=== PATIENT | male | born 1980 | race Caucasian/White ===

== ENCOUNTER 2016-09-21 09:58 | Day surgery (SDC) | payer OTHER ==
[~2016-09-21 09:58] MED LIST: Lidocain 1% EPI 1:100,000 * 30 ML MDV ONE
[2016-09-21] MEDS ORDERED: Bupivacaine 0.25% SDV* 30 ML ONE (10:23)
[2016-09-21 12:37] VITALS: BP 126/80
--- NOTE | 2016-09-22 03:38 | OP ---
DATE OF OPERATION: 09/21/16 - [facility] DATE OF : 80 SURGEON: Alfonzo Mercado MD WAX ENGRAVER: GHISLAINE Flynn. ANESTHESIOLOGIST: None. ANESTHESIA: Local only with 1% lidocaine with epinephrine and bicarbonate. PRE-OP DIAGNOSIS: Right carpal tunnel syndrome. PRE-OP DIAGNOSIS: Right carpal tunnel syndrome. OPERATIVE PROCEDURES: Right open carpal tunnel release. INDICATIONS: Eugene is a 35-year-old male with progressive bilateral carpal tunnel syndrome. It is [id number] on the electrodiagnostics. We had talked about which side to do first; we decided upon the right. We talked about risks and benefits of the surgery including the risk of nerve injury and wound problems. He elected to proceed. ESTIMATED BLOOD LOSS: 5 mL. COMPLICATIONS: None. FINDINGS: As expected. DESCRIPTION OF PROCEDURE: Eugene was seen in the preoperative holding area and the correct site, side, and the procedure were identified. We had a time-out and then I anesthetized the operative area with 1% lidocaine with epinephrine and bicarbonate. Short time later, we came back to the operating room, where the arm was then prepped and draped in the usual fashion and a formal time-out was performed. A standard 2 to 3 cm longitudinal incision was made in the typical location for an open carpal tunnel release. Dissection was carried down through the subcutaneous tissue and the palmar fascia to expose the transverse carpal ligament. Thenar musculature was identified. Transverse carpal ligament was released just off the radial aspect of the hook of the hamate and ulnar to the origin of the thenar muscles. The release was carried out from distal to proximal. When I got to the level of the proximal aspect of the incision, I released the subcutaneous tissue and retracted that volarly and ulnarly with a Nicolas retractor. I then used the tenotomy scissors and under direct visualization, released the remainder of the transverse carpal ligament and distal antebrachial fascia to a level several centimeters proximal to the wrist flexion crease. I then checked the decompression. There was absolutely no compression proximally or distally. The median nerve definitely looked inflamed and it was bit adherent to the undersurface of the transverse carpal ligament, so this was released. Once there was absolutely no compression on that nerve, I went ahead and irrigated out the wound and the skin was closed with 4-0 nylon suture. The operative area was infiltrated with 0.25% plain Marcaine. The wound was dressed with Xeroform, 4x4s, sterile Webril, and an Nacho bandage was placed. He was then taken to the recovery room in stable condition. [id number]/[facility] #: [id number] [facility]
== END 2016-09-21 12:37 | disposition home or self-care (01) ==
LOC: OREAST 09:58
PROVIDERS: ATTEND Orthopaedic Surgery Hand Surgery
DX: G56.03 Carpal tunnel syndrome, bilateral upper limbs (principal); F17.210 Nicotine dependence, cigarettes, uncomplicated; F11.20 Opioid dependence, uncomplicated

== ENCOUNTER 2018-06-28 08:04 | Emergency (ER) | payer OTHER ==
--- NOTE | 2018-06-28 08:24 | ED ---
Substance Abuse/Use - HPI Summary HPI Summary: A 37 y/o male brought in by police presents to [facility] with a chief complaint of heroin withdrawal since 07:00 today. Per police, the patient shot up heroin this morning and was taken into custody at 07:00. He then was experiencing syncopal episodes and was drooling on himself. At triage he rated his pain as a 0/10 in severity. He reports that he is prescribed Suboxone from Dr. Paula, but he has been using heroin instead. He claims that he uses heroin every few days. He claims that it has been about a week since he last used Suboxone. He says that his daughter witnessed him having syncopal episodes. 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 abnormality us - Cancer History Cancer Type, Location and Year: noone - Surgical History Surgery Procedure, Year, and Place: chest tube trauma 2005 ,left Infectious Disease History: No Infectious Disease History: Reports: Hx Hepatitis - hep c Denies: Hx Clostridium Difficile, Hx Human Immunodeficiency Virus (HIV), Hx of Known/Suspected MRSA, Hx Shingles, Hx Tuberculosis, Hx Known/Suspected VRE, Hx Known/Suspected VRSA, History Other Infectious Disease, Traveled Outside the [place] in Last 30 Days - Family History Known Family History: Positive: Other - no hx RA/lupus/thyroid dz Negative: Hypertension, Diabetes - Social History Alcohol Use: None Substance Use Type: Reports: Heroin Substance Use Comment - Amount & Last Used: havent used in 1.5 years Smoking Status (MU): Heavy Every Day Tobacco Smoker Type: Cigarettes Amount Used/How Often: 1/2 ppd Length of Time of Smoking/Using Tobacco: 15 years Have You Smoked in the Last Year: Yes Review of Systems Negative: Fever Neurological: Other - posititive: drooling Positive: Syncope Positive: Other - Positive: heroin use [employer] All Other Systems Reviewed And Are Negative: Yes Physical Exam - Summary Physical Exam Summary: Appearance: The patient is well-nourished in no acute distress and in no acute pain. Skin: The skin is warm and dry and skin color reflects adequate perfusion. HEENT: The head is normocephalic and atraumatic. The pupils are equal and reactive. The conjunctivae are clear and without drainage. Nares are patent and without drainage. Mouth reveals moist mucous membranes and the throat is without erythema and exudate. The external ears are intact. The ear canals are patent and without drainage. The tympanic membranes are intact. Neck: The neck is supple with full range of motion and non-tender. There are no carotid bruits. There is no neck vein distension. Respiratory: Chest is non-tender. Lungs are clear to auscultation and breath sounds are symmetrical and equal. Cardiovascular: Heart is regular rate and rhythm. There is no murmur or rub auscultated. There is no peripheral edema and pulses are symmetrical and equal. Abdomen: The abdomen is soft and non-tender. There are normal bowel sounds heard in all four quadrants and there is no organomegaly palpated. Musculoskeletal: There is no back tenderness noted. Extremities are non-tender with full range of motion. There is good capillary refill. There is no peripheral edema or calf tenderness elicited. Neurological: Patient is alert and oriented to person, place and time. The patient has symmetrical motor strength in all four extremities. Cranial nerves are grossly intact. Deep tendon reflexes are symmetrical and equal in all four extremities. Psychiatric: The patient has an appropriate affect and does not exhibit any anxiety or depression. COWS: 12 Triage Information Reviewed: Yes Vital Signs On Initial Exam: Initial Vitals Temp Pulse Resp BP Pulse Ox 97.9 F 91 22 131/97 100 06/28/18 08:06 06/28/18 08:06 06/28/18 08:06 06/28/18 08:06 06/28/18 08:06 Vital Signs Reviewed: Yes Diagnostics - Vital Signs Vital Signs Temp Pulse Resp BP Pulse Ox 06/28/18 08:06 97.9 F 91 22 131/97 100 - Laboratory Lab Statement: Any lab studies that have been ordered have been reviewed, and results considered in the medical decision making process. Re-Evaluation - Re-Evaluation First Eval Re-Evaluation Time: 10:24 Change: Improved Comment: Pt is ready for DC Course/Dx - Course Course Of Treatment: Mr. Aguilar presented from the snf with officers. The story is a little confusing and according to the officers has very quite a bit. He was picked up this morning and brought to snf. He has a history of injectable heroin use along with pain prescribes Suboxone by Dr. Paula. He states that he has not been taking his Suboxone because he relapsed. He tells me that his last dose of heroin was yesterday and that he is in withdrawal. He is doing a lot of twitching in the bed and his COWS although it is subjective is only 12. I offered him an 8 mg Suboxone and he stated that he only wanted 2 mg. He had told the officers earlier that he did heroin this morning. I suspect he probably has done heroin he is not freya to Suboxone and does not want to precipitate withdrawal. He will likely need Suboxone while he is in the snf but he is stable at this point and there is nothing more that I can do for him here. - Diagnoses Provider Diagnoses: Opioid dependence Discharge - Sign-Out/Discharge Documenting (check all that apply): Patient Departure - DC to snf Patient Received Moderate/Deep Sedation with Procedure: No - Discharge Plan Condition: Stable Disposition: HOME Referrals: Alfonso Paula MD [Medical Doctor] - (2-3 days) Additional Instructions: Return to the ED if you experience any new or worsening symptoms. - Billing Disposition and Condition Condition: STABLE Disposition: Home - Attestation Statements Document Initiated by Amandaibe: Yes Documenting Scribe: Keaton Montoya Provider For Whom Niranjan is Documenting (Include Credential): John Boucher MD Scribe Attestation: IKeaton, scribed for John Boucher MD on 06/28/18 at 1831. Scribe Documentation Reviewed: Yes Provider Attestation: The documentation as recorded by the Keaton gonzalez accurately reflects the service I personally performed and the decisions made by me, John Boucher MD Status of Scribe Document: Viewed
[2018-06-28] MEDS ORDERED: Buprenorp/Nalox 8-2 MG FILM 1 EACH SL FILM ONE (08:25)
[2018-06-28] MEDS ORDERED: Buprenorp/Nalox 2-0.5 MG SL TB 1 EACH TAB.SUBL SL ONE (08:41)
[2018-06-28 10:38] VITALS: BP 122/80
== END 2018-06-28 10:49 | disposition home or self-care (01) ==
LOC: ED 08:04
DX: F11.20 Opioid dependence, uncomplicated (principal); R55 Syncope and collapse; I10 Essential (primary) hypertension; Z88.0 Allergy status to penicillin; F17.210 Nicotine dependence, cigarettes, uncomplicated
CPT/HCPCS: 99282; A9270-GY